=== PATIENT | male | born 1950 | race Caucasian/White ===

== ENCOUNTER → 2021-03-08 | Outpatient (CLI) | payer MEDICARE, SELFPAY | END | disposition home or self-care (01) | LOC: LABSPEC 16:19 | PROVIDERS: PCP Hospitalist; Visit Provider Urology | DX: N20.1 Calculus of ureter (principal) | CPT/HCPCS: 82360 ==

== ENCOUNTER 2023-03-26 09:49 | Day surgery (SDC) | payer MEDICARE, SELFPAY ==
--- NOTE | 2023-03-16 07:47 | EKG12_ITS ---
Test Reason : PRE OP Blood Pressure : / mmHG Vent. Rate : 080 BPM Atrial Rate : 080 BPM P-R Int : 150 ms QRS Dur : 092 ms QT Int : 372 ms P-R-T Axes : 077 067 055 degrees QTc Int : 429 ms Normal sinus rhythm Normal ECG Confirmed by GILBERTO VARGAS, LATA ([id number]), editorial intern CATHY CASTREJON ([id number]) on 03/16/2023 1:29:42 PM Referred By: Mode Levi Confirmed By:LATA MACIAS MD
[2023-03-26] VITALS (8 sets, daily range): BP systolic 112–142; BP diastolic 67–81; PULSE 62–83; RESP 16; TEMP 36.3–37; O2SAT 95–99; BMI 28.2
[2023-03-26] MEDS: Lactated Ringers 1,000 ML 15 ML IV ×2 (10:47→13:19)
--- NOTE | 2023-03-26 11:08 | PCM.HP.BLA ---
History and Physical Date of Admission: 03/26/23 Intake Vital Signs ? 03/14/2309:18 Height 5 ft 5 in Weight: 177 lb BMI 29.4 BP 161/96 H Blood Pressure Location Rt radial Position Sitting Respiration 18 Pulse 94 Pulse Source Monitor Intake Visit Reasons:?Enlarge lymph Nodes R Groin Area Chief Complaint: enlarged groin lymph nodes PFSH Family History?(Updated 03/14/23 @ 09:17 by Rebecca Damon) Sister Colon cancerBrother Diabetes 1.5, managed as type 2Mother Heart disease Social History?(Updated 03/14/23 @ 09:18 by Rebecca Damon) adopted:? No household members:? spouse Smoking Status:? Never smoker HPI HPI HPI: Patient is a 72-year-old male here complaining of right groin pain.? Patient says the groin pain started in October while he was golfing.? He says it has come and gone since then.? It is especially worse when he does golf.? He says that when he lays down in bed at night he does not have any pain.? He was originally sent here for enlarged lymph nodes of the right groin. ROS General General: No weight change, appetite, fatigue, colon cancer, breast cancer or weakness HEENT HEENT: No difficulty swallowing, eye injury, eye surgery, swollen glands or hoarseness Endo Endocrine: No thyroid disease, diabetes mellitus, thyroid cancer, Hair loss, heat intolerance or cold intolerance Skin Skin: No rash or changing moles Breast Breast: No left breast lump, right breast lump, nipple discharge, breast pain, abnormal mammogram, abnormal US or breast enlargement Musc Musculoskeletal: No back problems, arthritis, rheumatoid arthritis, gout or joint pain Cardio Cardiovascular: No murmur, pacemaker, heart disease, atrial fibrillation, high blood pressure, heart attack, heart stent, palpitations, shortness of breat with exertion or chest pain Psych Psychiatric: No depression, anxiety or hearing voices Resp Respiratory: No shortness of breath, No sleep apnea, No cough, No COPD, No asthma, No emphysema and No wheezing Gastro Gastrointestinal: No abdominal pain, No nausea or vomiting, No diarrhea, No constipation, No blood in stool, No acid reflux, No hemorrhoids, No ulcers, No gallbladder problem and No black,tarry stools Nicholas Hematologic: No blood thinners, No blood disorders, No bleeding, No anemia and No blood clots Neuro Neurologic: No system reviewed and no additional complaints, except as documented, No as per HPI, No abnormal gait, No abnormal hearing, No abnormal movements, No abnormal speech, No behavioral changes, No burning sensations, No confusion, No convulsions, No disequilibrium, No dizziness, No localized weakness, No frequent falls, No headache(s), No lack of coordination, No loss of vision, No memory loss, No numbness, No other visual disturbances, No radicular pain, No restless legs, No sensory deficit, No syncope, No tingling, No tremor(s), No weakness and No other Exam Const General: cooperative Orientation: alert and oriented x3 HENMT Head: normal to inspection Neck Neck: normal visual inspection and full ROM Chest Chest palpation & inspection: normal inspection of the chest Resp Effort & Inspection: normal respiratory effort Auscultation: clear to auscultation bilaterally Cardio Rate: regular rate Rhythm: regular rhythm GI Inspection: non-distended Palpation: soft, hernia indirect inguinal on the right and nontender Skin General: no rashes or lesions noted Neuro General: patient alert and patient oriented x3 Extrem General: full ROM Psych Appearance: grossly normal Mental Status: mental status grossly normal Assessment and Plan Assessment and Plan (1) Right inguinal hernia: ?Status:?Acute ?Plan: Patient has been having right groin pain and was sent here for enlarged lymph nodes but the ultrasound report does not show that any of the lymph nodes are enlarged.? When I performed exam I was not able to identify any enlarged lymph nodes.? I did place my finger into his right inguinal canal and this did reproduce his pain.? There was no bulging or clear hernia but he does have some laxity in the inguinal canal and this did reproduce his pain.? I believe he has a small inguinal hernia that may be causing his pain in his groin and I recommended robotic assisted laparoscopic right inguinal hernia repair with mesh.? I explained that I would check for a lipoma of the cord on the right side as well.? I did explain that this may not be the definite diagnosis but it is hard to differentiate between a strain and an inguinal hernia and I would think that the strain would have cleared up by now.? I do not believe it is due to enlarged lymph nodes because he experiences relief from laying down. I discussed robotic assisted inguinal hernia repair in detail.? I discussed the risks including of the limited to bleeding, infection, injury to underlying bowel or other organs such as the ureter, bladder, blood supply to the testicle.? Patient understands the risks and mesh placement and is willing to proceed. Mode Levi MD Pager: [facility] [address] [place] [address] [address] [place] [address] Office: I have examined the patient and the H&P has been reviewed. There are no clinical changes since date of exam.
[2023-03-26] MEDS: Cefazolin 2 GM in 0.9% Normal Saline 100 ML IV (11:35)
[2023-03-26] MEDS: Bupivacaine Mpf 0.5% 30 ML VIAL (12:24)
--- NOTE | 2023-03-26 12:47 | PCM.OPRPT ---
Report of Operation Date of Procedure: 03/26/23 Pre-Operative Diagnosis: Right groin pain Post-Operative Diagnosis: Right inguinal cord lipoma, small right inguinal hernia, right lower quadrant intestinal adhesions Surgery/Procedure Performed:: Robotic assisted laparoscopic right inguinal hernia repair with mesh Description of Procedure: Patient was brought back to the operating room and general anesthesia was induced. The abdomen was prepped and draped in usual sterile fashion. An incision was made superior to the umbilicus and deepened to the fascia. The fascia was grasped and elevated with a Jaqui clamp. Veress needle was placed into the abdomen and a drop test was performed. The abdomen was then insufflated to 15 mmHg. The Veress needle was removed and the port was placed. The camera was placed into the abdomen is inspected. There is no injuries from entry. Under direct visualization an 8 mm port was placed in the right lateral sidewall and left lateral sidewall and the robot was docked. The right inguinal region was inspected. The right colon and pericolonic fat were adherent to the right abdominal sidewall. The right lateral adhesions were taken down bluntly. It appeared inflammatory. Next an incision was made in the inguinal region in the peritoneum. Using cautery scissors dissection was carried inferiorly until the inguinal canal was reached. The inguinal canal was inspected and there was a small lipoma which was removed. There is also small inguinal hernia. Next ProGrip mesh was placed over the inguinal region completely covering the hernia and precluding the lipoma from reentering the inguinal canal. The peritoneum was then reapproximated using running 3 OV lock suture completely covering the mesh. The bowel was inspected once more and appeared to be in good shape and was freely mobile. Next the robot was undocked and the air was allowed to desufflate from the abdomen. The incisions were injected with local anesthetic and closed with interrupted 4-0 Monocryl sutures. Steri-Strips and bandages were applied. Scrotum was checked and contain both testicles. Patient was awoken and taken to PACU in stable condition. Grafts/Implants Used: ProGrip mesh Admit VTE Documentation VTE Mechan Device Prophylaxis: SCD's
--- NOTE | 2023-03-26 12:55 | EX.PCM.DISCH ---
Discharge Instructions Procedure Hernia Diet Discharge Diet: Light diet - advance as tolerated Activity Discharge Activity: May Not Drive (for 2-3 days or while taking narcotic pain meds.) and May Shower (with the bandage in place 1-2 days after surgery.) Lifting Restrictions: 20 pounds for 4 weeks. Additional Activity Instructions:: Climbing stairs is fine, walking is encouraged. Sitting in bed may be uncomfortable. Sitting up using your lateral muscles (sitting up sideways) is usually more comfortable. Do not drive, work heavy equipment of sign legal documents for 24 hours. If your hernia repair was an inguinal repair, you may have scrotal swelling, an ice pack and/or athletic support can provide more comfort. Pain medications may cause nausea, you should typically eat light foods as you take your pain medications. Pain medications may also cause constipation. If you have difficulty with this, discuss with your doctor. Dressing / Incision Call your doctor if your incision/area has: Continuous Slow Oozing, Sudden Increased Bleeding, Increased Pain/ Swelling, Increased Redness and Foul Smelling Discharge Call your doctor if you observe: Fever of 101 or Higher Suture Line Care: Avoid Pulling/Pushing and Avoid Pinching/Bending Remove Dressing in: 2 days (Remove clear bandages in 2 days, remove Steri-Strips in 7 to 10 days.) Follow Up Care Please Follow Up With: Mode Levi MD When: Please call to schedule 2 week follow up appointment. [phone] Test Results: Test results from this visit will be discussed in further detail at your follow-up appointment, if applicable. Discharge Plan Admission Attending Provider: Mode Levi Primary Care Provider: Manuel Mishra NP Instructions Additional Instructions / Restrictions: Ibuprofen and Tylenol for pain, oxycodone for breakthrough Discharge Orders/Prescriptions Prescriptions: New oxycodone 5 mg tablet 5 - 10 mg PO Q6H PRN (Reason: pain) 5 Days Qty: 10 0RF No Action multivitamin Tablet 1 tab PO DAILY simvastatin 10 mg tablet 10 mg PO DAILY finasteride 5 mg tablet 5 mg PO DAILY Referrals / Follow Up: Manuel Mishra NP, [facility] [Primary Care Provider] - Disposition Disposition (needs filled in before D/C Order can be placed): Home, Self Care
== END 2023-03-26 15:41 | disposition home or self-care (01) ==
LOC: SDC 09:53 → AC 09:54
PROVIDERS: PCP Nurse Practitioner Family; Referring Provider Surgery; Visit Provider Surgery
PROC: (CPT 49650; principal; 2023-03-26 11:10)
DX: K40.90 Unilateral inguinal hernia, without obstruction or gangrene, not specified as recurrent (principal); D17.6 Benign lipomatous neoplasm of spermatic cord; K66.0 Peritoneal adhesions (postprocedural) (postinfection); E78.00 Pure hypercholesterolemia, unspecified; Z79.899 Other long term (current) drug therapy
CPT/HCPCS: 49650; 55520; S2900; 00750; 93005; J7120; J2405

== ENCOUNTER 2024-03-10 09:58 | Day surgery (SDC) | payer MEDICARE, SELFPAY ==
[2024-03-10 10:30] VITALS: BP 135/76; PULSE 59; RESP 16; TEMP 36.6; O2SAT 100; BMI 61.6
[2024-03-10] MEDS: Lactated Ringers 1,000 ML 15 ML IV (10:36)
--- NOTE | 2024-03-10 11:27 | RAD_ITS ---
PROCEDURE: Fluoroscopy in operating room. DATE OF EXAMINATION: INDICATION: Male, 73 years old. Low back pain, pelvic pain. PHYSICIAN: FLUOROSCOPY TIME (if supplied): (0:03) minutes/seconds Technique: 3 seconds of fluoroscopy of the sacrum was utilized operating room during epidural steroid injection in a single image is submitted for interpretation. RAD/Fluor Guidance for Spine Inj IMPRESSION: Fluoroscopy during epidural steroid injection. Electronically Signed: Manuel Stubbs MD at 19:09 EDT ,
[2024-03-10] MEDS: MethylPREDNISolone Acetate 80 MG/ML Vial (11:32)
[2024-03-10] MEDS: Lidocaine 1% (5 ml sdv) 5 ML Vial (11:32)
[2024-03-10] MEDS: 0.9% Normal Saline (Pres. free 10 ML Vial (11:32)
--- NOTE | 2024-03-10 11:35 | OP.PCM_ITS ---
Report of Operation Date of Procedure: 03/10/24 Pre-Operative Diagnosis: Lumbosacral radiculopathy, lumbosacral degenerative di sc disease, lumbosacral spinal stenosis Post-Operative Diagnosis: Lumbosacral radiculopathy, lumbosacral degenerative disc disease, lumbosacral spinal stenosis Surgery/Procedure Performed:: Diagnostic/therapeutic caudal epidural steroid injection under fluoroscopic guidance Type of Anesthesia: MAC Estimated Blood Loss (mL): Minimal Description of Procedure: DESCRIPTION OF PROCEDURE: History and physical of today was reviewed. Risks and benefits of the procedure were explained. The patient understood and agreed to proceed. Informed consent was obtained. IV inserted per routine protocol. The patient was taken to the operating room and placed in the prone position with a pillow positioned underneath the abdomen. The lower back and tailbone area was prepped and draped in a sterile fashion using iodine x3. Under fluoroscopy guidance on a lateral view, the caudal space was identified. The skin and subcutaneous tissue was anesthetized with approximately 3 mL of 1% lidocaine using a 25-gauge regular needle. Under direct visualization with fluoroscopy, using a 22-gauge 3-1/2-inch spinal needle, the needle was advanced via the skin through the sacral hiatus. The tip of the needle was passed through the sacrococcygeal ligament and advanced to approximately S4 area. After negative aspiration of blood or CSF, a total of 3 mL of contrast was injected to confirm correct placement of the needle as well as cephalad spread. The spread was followed to approximately L5 area. After confirmation on AP as well as lateral view and repeated negative aspiration, a total of 15 mL of preservative-free 0.125% Marcaine with 80 mg of Depo-Medrol was injected easily. The needle was then removed intact. The patient experienced no sign or symptoms of intrathecal or intravascular injection. The patient experienced no paresthesia. The procedure was completed without any apparent difficulty or any complications. The patient appeared to tolerate it well. ASSESSMENT AND PLAN: This is a 73-year-old male with lumbosacral radiculopathy, lumbosacral degenerative disc disease, lumbosacral spinal stenosis status post diagnostic/therapeutic caudal epidural steroid injection, patient will continue his current medications, patient will follow in approximately 2 weeks for reevaluation. Complications None
[2024-03-10 11:41] VITALS: BP 120/74; BP 135/76; PULSE 61; RESP 14; TEMP 36.7; O2SAT 100
[2024-03-10 11:45] VITALS: BP 134/78; BP 135/76; PULSE 66; RESP 14; O2SAT 99
[2024-03-10 11:51] VITALS: BP 133/89; BP 135/76; PULSE 65; RESP 14; TEMP 36.5; O2SAT 99
[2024-03-10 12:08] VITALS: BP 135/76
== END 2024-03-10 12:10 | disposition home or self-care (01) ==
LOC: SDC 10:00 → AC 10:20
PROVIDERS: PCP Nurse Practitioner Family; Referring Provider Anesthesiology Pain Medicine; Visit Provider Anesthesiology Pain Medicine
PROC: 3E0S3BZ Introduction of Anesthetic Agent into Epidural Space, Percutaneous Approach (ICD-10-PCS; CPT 62282; principal; 2024-03-10 11:45)
DX: M51.17 Intervertebral disc disorders with radiculopathy, lumbosacral region (principal); M48.07 Spinal stenosis, lumbosacral region; E78.00 Pure hypercholesterolemia, unspecified; M51.37 Other intervertebral disc degeneration, lumbosacral region; M47.817 Spondylosis without myelopathy or radiculopathy, lumbosacral region; Z79.891 Long term (current) use of opiate analgesic; Z79.899 Other long term (current) drug therapy
CPT/HCPCS: 62323; 01992; 64483; 77003; J7120; J3490

== ENCOUNTER 2024-05-05 07:23 | Day surgery (SDC) | payer MEDICARE, SELFPAY ==
[2024-05-05] VITALS (9 sets, daily range): BP systolic 106–151; BP diastolic 65–77; PULSE 16–77; RESP 16; TEMP 36.4–36.5; O2SAT 97–100; BMI 28.2
--- NOTE | 2024-05-05 07:46 | PRE.ANES_ITS ---
ASA Classification* ASA Classification ASA Classification: 2 Assessment & Plan Anesthesia* Anesthesia Assessment Anesthesia Assessment: Discussed sedation and/or anesthesia options, risks, benefits, and alternatives with patient/parents/legal guardian/POA. Questions invited. The patient/parents/legal guardian/POA seems to understand and agrees to proceed with anesthesia plan. Reviewed the physical assessment, medical history, allergy history and patient home medications list prior to surgery/procedure/anesthetic and documented any changes. Performed airway and anesthesia risk assessments. 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 When Was Last Pacemaker Check QUESTION #4 FULL TEXT: You/Your Family Experience fever (hyperthermia) with Anesthesia Last Oral Intake Last Oral intake: Last Oral Intake NPO since Meds taken in AM with sips of water? 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 Female HX of Motion Sickness HX of N/V After Surgery Non-Smoker Duration of Surgery greater than 60 minutes Number of Risk Factors PONV Score Height & Weight Height & Weight: Anesthesia: Height & Weight Height 5 ft 5 in 03/10/24 10:30 Respiratory Assessment Respiratory Assessment - delivery driver: Respiratory Tract Infection Hx - delivery driver Hx Respiratory Tract Infection No 03/04/24 13:40 STOP Sleep Apnea STOP Sleep Apnea - delivery driver: STOP Sleep Apnea - delivery driver Hx Hypertension No 03/04/24 13:40 Hx Sleep Apnea No 03/10/24 11:51 CPAP No 03/10/24 11:41 BIPAP Do you snore loudly (louder than talking or can be heard Do you often feel tired/ fatigued/ sleepy during daytime? Has anyone observed you stop breathing during sleep? STOP Results QUESTION #5 FULL TEXT : Do you snore loudly (louder than talking or can be heard through closed doors)? Tobacco Use History Tobacco Use History - delivery driver: Tobacco Use History - delivery driver Tobacco Use Smoking Status Never smoker 03/04/24 13:40 Hx Tobacco Use No 03/04/24 13:40 Years Smoking Packs Smoked per Day Smoking Cessation Date was within the last 15 years Hx Smoking Cessation Date Hx Smoking Cessation Counseling Hematologic Medial History Hematologic Hx - delivery driver: Hematologic Medical Hx - vp human resources Hx of Blood Transfusion Hx of Transfusion in last 3 Months Date of Last Transfusion (if within last 3 months) Ever experience any problems with transfusion(s)? Specify any problems Hx of Preganancy in last 3 Months Nurse Filling Out Transfusion & Questions: Date: Time: Patient unable to answer at this time (ie. confused, unrespo /Reproduction History /Reproductive History - delivery driver: /Reproductive Hx- delivery driver Hx Now Gestational Age (in weeks): EDC: Hx Hx Para Hx Section SAB Active Medications Active Medications: Current Medications Generic Name Dose Route Start Last Admin Trade Name Freq PRN Reason Stop Dose Admin Lactated Ringer's 1,000 mls @ 15 mls/hr 05/05/24 07:30 IV .Q48H SUMANTH PFSH Medical History Inguinal hernia Arthritis Prostate disease High cholesterol Migraine headache History of hiatal hernia Non-smoker Heartburn History of kidney stones Home Medications ?Medication ?Instructions ?Recorded ?Last Taken ?Type finasteride 5 mg tablet 5 mg PO DAILY 03/15/23 Unknown History multivitamin 1 tab PO DAILY 03/15/23 Unknown History simvastatin 10 mg tablet 10 mg PO DAILY 03/15/23 Unknown History Allergy/AdvReac Type Severity Reaction Status Date / Time atorvastatin (From Lipitor) AdvReac Other Verified 05/05/24 07:46 hydrocodone (From Mosca) AdvReac Other Verified 05/05/24 07:46 naproxen (From Aleve) AdvReac Other Verified 05/05/24 07:46 tamsulosin AdvReac PT UNSURE Verified 05/05/24 07:46 OF REACTION zolpidem (From Ambien) AdvReac Other Verified 05/05/24 07:46 Family History Sister Colon cancer Brother Diabetes 1.5, managed as type 2 Mother Heart disease Surgical History History of hand surgery Social History adopted: No household members: spouse Smoking Status: Never smoker Review of Systems (Anesthesia) ROS Narrative System reviewed and no additional complaints, except as documented.
[2024-05-05] MEDS: Lactated Ringers 1,000 ML 15 ML IV (07:47)
[2024-05-05] MEDS: Lidocaine 1% (5 ml sdv) 5 ML Vial (09:00)
[2024-05-05] MEDS: MethylPREDNISolone Acetate 80 MG/ML Vial (09:00)
--- NOTE | 2024-05-05 09:08 | OP.PCM_ITS ---
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 PROCEDURE PERFORMED: Right-sided ilioinguinal nerve steroid injection under ultrasound guidance. ANESTHESIA: MAC. BLOOD LOSS: Minimal. COMPLICATIONS: None. DESCRIPTION OF PROCEDURE: History and physical of today was reviewed. Risks and benefits of the procedure were explained. The patient understood and agreed to proceed. Informed consent was obtained. IV inserted per routine protocol. The patient was taken to the operating room and placed in the supine position. The right groin area was prepped and draped in a sterile fashion using iodine x3. Under ultrasound guidance, the ilioinguinal nerve was visualized at approximately 3 cm cephalad and lateral to the pubic tubercle. Once the nerve was visualized with ultrasound, the skin and subcutaneous tissue was anesthetized with approximately 3 mL of 1% lidocaine using a 25-gauge regular needle. With an in-plane technique, using a 22-gauge 3-1/2-inch needle, the needle was passed through the skin. Once the needle was visualized on the in- plane technique with the ultrasound probe, the needle was then advanced to be at the vicinity of the ilioinguinal nerves. Under direct visualization with ultrasound, a total of 10 mL of preservative-free 0.25% Marcaine and 40 mg of Depo-Medrol was injected around the ilioinguinal nerve and the inguinal branch of the ilioinguinal nerve. The needle was then removed intact. The expansion was visualized with ultrasound without any intravascular uptake. The needle was then removed intact. The patient experienced no sign or symptoms of intravascular injection. The patient experienced no paresthesia. The procedure was completed without any apparent difficulty or any complications. The patient appeared to tolerate it well Assessment and plan: This is a 73-year-old male with ilioinguinal neuropathy, chronic postoperative herniorrhaphy pain status post right-sided ilioinguinal nerve steroid injection under ultrasound guidance, patient will continue his current medications, patient will follow up in approximately 2 weeks for reevaluation.
--- NOTE | 2024-05-05 09:27 | PCM.POST.ANE ---
Anesthesia: Postop Eval I Current Vital Signs Temperature: 97.7 F Pulse Rate: 16 Blood Pressure: 106/66 Respiratory Rate: 16 Pulse Ox: 98 Oxygen Delivery Method: Room Air Assessment Airway patent: Yes Spontaneous unlabored respirations: Yes Mental status: Awake and Calm nausea: No Vomiting: No Anesthesia Complication: No Fluid Hydration Crystalloid volume administer (ml): 400 Total IV fluid infused: 400 Progress Note Anesthesia document: Postop Eval 1 completed: Yes
--- NOTE | 2024-05-05 09:30 | PCM.POSTANE2 ---
Anesthesia Postop Eval I Sum Postop Eval Completion status Anesthesia document: Postop Eval 1 completed: Yes Anesthesia Postop Eval I Summary Anesthesia Postop Eval I Summary: Anesthesia Postop Eval I: Assessment Summary Airway patent Yes 05/05/24 09:27 [email or web address] Spontaneous unlabored Yes 05/05/24 09:27 [email or web address] respirations Mental status Awake,Calm 05/05/24 09:27 [email or web address] nausea No 05/05/24 09:27 [email or web address] Vomiting No 05/05/24 09:27 [email or web address] Anesthesia Postop Eval I: Fluid Summary Crystalloid volume administer 400 05/05/24 09:27 [email or web address] (ml) Colloids volume administered ( ml) Blood Product volume administered (ml) Total IV fluid infused 400 05/05/24 09:27 [email or web address] Anesthesia Postop Eval I: Summary Notes Anesthesia Complication No 05/05/24 09:27 [email or web address] Anesthesia Complication Comment: Post-operative progress note Anesthesia: Postop Eval II Evaluation Mental status: Awake Pain Level: 0 nausea: No Vomiting: No
== END 2024-05-05 09:48 | disposition home or self-care (01) ==
LOC: SDC 07:26 → AC 07:27
PROVIDERS: PCP Nurse Practitioner Family; Referring Provider Anesthesiology Pain Medicine; Visit Provider Anesthesiology Pain Medicine
PROC: 3E0U3BZ Introduction of Anesthetic Agent into Joints, Percutaneous Approach (ICD-10-PCS; CPT 64451; principal; 2024-05-05 08:55)
DX: G57.80 Other specified mononeuropathies of unspecified lower limb (principal); G89.29 Other chronic pain; E78.00 Pure hypercholesterolemia, unspecified; M47.817 Spondylosis without myelopathy or radiculopathy, lumbosacral region; Z79.899 Other long term (current) drug therapy
CPT/HCPCS: 64450; 01991; J7120